=== PATIENT | male | born 1980 | race Caucasian/White ===

== ENCOUNTER 2023-11-09 14:18 | Emergency (ER) | payer SELFPAY ==
[2023-11-09 14:48] LABS: BASOPHILS PERCENT AUTO 0.1 % (0.0-1.0); EOSINOPHILS PERCENT AUTO 0.4 % (1.0-3.0); HEMATOCRIT 36.1 % (40.0-54.0); HEMOGLOBIN 12.3 g/dL (14.0-18.0); MEAN CORPUSCULAR HEMOGLOBIN 30.9 pg (27.0-34.0); MEAN CORPUSCULAR HGB CONC 34.1 g/dL (33.0-35.0); MEAN CORPUSCULAR VOLUME 90.7 fL (80-100); MONOCYTES PERCENT AUTO 7.7 % (2-8); NEUTROPHILS PERCENT AUTO 82.8 % (42.2-75.2); PLATELET COUNT,PLT 290 10^3/uL (150-450); RED BLOOD CELL COUNT 3.98 10^6/uL (4.6-6.2); WHITE BLOOD CELL COUNT,WBC 15.8 10^3/uL (5.0-10.0)
[2023-11-09 14:50] LABS: APPEARANCE,URINE CLEAR (CLEAR); BILIRUBIN,URINE NEGATIVE (NEGATIVE); COLOR,URINE YELLOW (YELLOW); GLUCOSE,URINE NEGATIVE (NEGATIVE); KETONES,URINE NEGATIVE (NEGATIVE); LEUKOCYTE ESTERASE,URINE NEGATIVE (NEGATIVE); NITRITE,URINE NEGATIVE (NEGATIVE); OCCULT BLOOD,URINE TRACE-INTACT (NEGATIVE); PROTEIN,URINE NEGATIVE (NEGATIVE); UROBILINOGEN,URINE 0.2 mg/dL (0.2-1.0)
[2023-11-09] MEDS: Ketorolac 30 MG/ML SDV IVPUSH ONE (15:01)
[2023-11-09] MEDS: Ondansetron 4 MG/2 ML SDV IVPUSH ONE (15:02)
[2023-11-09] MEDS: Lactated Ringers 1,000 ML IV ONE (15:03)
[2023-11-09 15:04] LABS: BACTERIA,URINE FEW /HPF (0-FEW/HPF); EPITHELIAL CELLS,URINE NOT SEEN /HPF (NOT SEEN); RBC,URINE 0-5 /HPF (0-5); WBC,URINE 0-5 /HPF (0-5/HPF)
[2023-11-09 15:07] LABS: A/G RATIO 1.4; ALBUMIN 3.8 g/dL (3.4-5.0); ANION GAP 13.9 mEq/L (7-13); BILIRUBIN TOTAL 0.6 mg/dL (0.2-1.0); BUN/CREATININE RATIO 10.8 (No establ ref range); CALCIUM 8.5 mg/dL (8.5-10.1); CREATININE 0.93 mg/dL (0.70-1.30); EST CRCL DRUG DOSING (CG) 116.62 mL/min; POTASSIUM,K 3.9 mmol/L (3.5-5.1); PROTEIN TOTAL,TP 6.6 g/dL (6.4-8.2)
[2023-11-09] MEDS: Iopamidol 612 MG/ML 100 ML Bottle IVPUSH ONE (15:27)
[2023-11-09] MEDS: Piperacillin/Tazobactam 4.5 GM in Sodium Chloride 0.9% 100 ML IV ONE (16:00)
[2023-11-09] MEDS: Sodium Chloride 0.9% 10 ML Syringe FLUSH PRN (16:04)
[2023-11-09 16:16] LABS: LACTIC ACID 0.9 mmol/L (0.4-2.0)
[2023-11-09] MEDS: Morphine 2 MG/ML SYRINGE IVPUSH ONE (18:07)
== END 2023-11-09 18:11 ==
LOC: DL.ED 14:18
DX: A41.9 Sepsis, unspecified organism (principal); K35.32 Acute appendicitis with perforation, localized peritonitis, and gangrene, without abscess
CPT/HCPCS: 36415; 74177; 80053; 81001; 83605; 83690; 85025; 87040; 93010; 96361; 96365; 96375; 99285; 99285-25; J1885; J2270; J2405; J2543; J3490; J7120; Q9967